=== PATIENT | male | born 1980 | race American Indian/Alaskan Native ===

== ENCOUNTER 2018-05-31 07:20 | Emergency (ER) | payer OTHER ==
[2018-05-31] MEDS ORDERED: TORADOL IM ONE (09:39)
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
[2018-05-31 10:15] VITALS: BP 122/90
== END 2018-05-31 10:16 | disposition home or self-care (01) ==
LOC: ED 07:20
DX: S19.9XXA Unspecified injury of neck, initial encounter (principal); F17.200 Nicotine dependence, unspecified, uncomplicated; V69.49XA Driver of heavy transport vehicle injured in collision with other motor vehicles in traffic accident, initial encounter; Y93.89 Activity, other specified; Y92.488 Other paved roadways as the place of occurrence of the external cause; Y99.8 Other external cause status
CPT/HCPCS: 96372; 99282; J1885